=== PATIENT | male | born 1955 | race Caucasian/White ===

== ENCOUNTER 2019-01-18 07:16 | Day surgery (SDC) | payer OTHER ==
[~2019-01-18] VITALS: Ht 167.6 cm; Wt 81.8 kg
[~2019-01-18 07:16] MED LIST: DICL75TA2 PO
[2019-01-18 08:29] VITALS: Ht 167.6 cm; Wt 81.8 kg
[2019-01-18 10:06] VITALS: BP 119/68; PULSE 76; RESP 20
[2019-01-18] MEDS ORDERED: FENTAnyl 50 MCG/ML VIAL ONE (10:17)
[2019-01-18] MEDS ORDERED: MIDAZOLAM 1 MG/ML 2 ML INJ ONE ×3 (10:17)
== END 2019-01-18 11:08 | disposition home or self-care (01) ==
LOC: GIL 07:16
PROVIDERS: ATTEND Internal Medicine Gastroenterology
DX: Z12.11 Encounter for screening for malignant neoplasm of colon (principal); K64.4 Residual hemorrhoidal skin tags; K57.30 Diverticulosis of large intestine without perforation or abscess without bleeding; Z86.010 Personal history of colon polyps
CPT/HCPCS: 45378; J2250; J3010